=== PATIENT | male | born 1970 | race Caucasian/White ===

== ENCOUNTER → 2019-12-05 | Day surgery (SDC) | payer BC ==
[~2019-12-05] MED LIST: CYMBALTA30 MG PO; FENTANYL CITRATE/PF 100MCG/2 ML INJ ONE; GABAPENTIN300 MG PO; GLUCAGON FOR INJ 1 MG VIAL ONE; IRBESARTAN-HCT1 EACH PO; MIDAZOLAM HCL 2 MG/2 ML VIAL ONE; NORCO 10-325 T1 EACH PO; PROPOFOL IV EMULSION 10 MG/ML 50 ML VIAL ONE
[2019-12-05 12:35] VITALS: BP 130/85
== END | disposition home or self-care (01) ==
LOC: OR 10:33 → EDBD 15:00
PROVIDERS: ATTEND Internal Medicine Gastroenterology
DX: Z12.11 Encounter for screening for malignant neoplasm of colon (principal); D12.3 Benign neoplasm of transverse colon; D12.2 Benign neoplasm of ascending colon; K29.50 Unspecified chronic gastritis without bleeding; B37.81 Candidal esophagitis; K21.9 Gastro-esophageal reflux disease without esophagitis; K57.30 Diverticulosis of large intestine without perforation or abscess without bleeding; K64.8 Other hemorrhoids; I10 Essential (primary) hypertension; M54.9 Dorsalgia, unspecified; Z01.810 Encounter for preprocedural cardiovascular examination; Z79.1 Long term (current) use of non-steroidal anti-inflammatories (NSAID); Z68.34 Body mass index [BMI] 34.0-34.9, adult; Z87.891 Personal history of nicotine dependence
CPT/HCPCS: 43239; 45384; 45385; 93005; J1610; J2250; J2704; J3010; 43235; 45378